=== PATIENT | female | born 1940 | race Two or more races ===

== ENCOUNTER 2020-04-11 10:42 | Inpatient (IN) | payer OTHER ==
[~2020-04-11] VITALS: Ht 144.8 cm; Wt 56.7 kg
[2020-04-11] MEDS ORDERED: LORazepam 2MG/ML-1ML VIAL IV ONE (11:00)
[2020-04-11] MEDS ORDERED: SODIUM CHLORIDE 0.9% 500 ML IVB ONE (11:00)
[2020-04-11 11:22] LABS: Hematocrit 41.4 % (36.0-46.0); Hemoglobin 14.4 g/dL (12.2-16.2); Mean Corpuscular Hemoglobin 33.5 pg (28.0-32.0); Mean Corpuscular Hgb Conc. 34.8 g/dL (32.0-36.0); Mean Corpuscular Volume 96.3 fL (80.0-100.0); Platelet Count (auto) 268 10^3/uL (140-450); Red Cell Distribution Width 15.9 % (11.8-14.3); White Blood Cell 7.3 10^3/uL (4.4-10.8)
[2020-04-11 11:31] LABS: Basophils % (manual) 0 (0.0-2.0); Blast Cells 0; Eosinophils % (manual) 0 (0-7); Metamyelocytes % 0; Myelocytes % 0; Promyelocytes % 0; Reactive Lymphocytes 0
[2020-04-11 11:50] LABS: Albumin 3.8 g/dL (3.4-5.0); Calcium 9.7 mg/dL (8.5-10.1); Potassium 3.4 mmol/L (3.5-5.1)
[2020-04-11 11:58] LABS: Bilirubin, Total 0.7 mg/dL (0.2-1.0); Total Protein 8.1 g/dL (6.4-8.2)
[2020-04-11 13:19] LABS: Band Neutrophils % (manual) 2; Lymphocytes % (manual) 34 (10.0-50.0); Monocytes % (manual) 3 (0-12)
[2020-04-11] MEDS ORDERED: NITROGLYCERIN 0.4 MG SL TAB SL PRN (15:30)
[2020-04-11] MEDS ORDERED: ONDANSETRON HCL 4 MG/2 ML VIAL IV PRN (15:30)
[2020-04-11] MEDS ORDERED: HALOPERIDOL LACTATE 5 MG/ML INJ VIAL IM ONE (16:00)
[2020-04-11] MEDS ORDERED: diphenhdrAMINE HCL 50 MG/1 ML VL IM ONE (16:00)
[2020-04-11] MEDS ORDERED: diphenhdrAMINE HCL 50 MG/1 ML VL ONE (16:05)
[2020-04-11] MEDS ORDERED: PRAV20TA3 PO (17:13)
[2020-04-11] MEDS ORDERED: AMLO-489 PO (17:13)
[2020-04-11] MEDS ORDERED: LEVO75TA6 PO (17:13)
[2020-04-11] MEDS ORDERED: TRIATAB3 PO (17:13)
[2020-04-11] MEDS: D5W/SOD CHL 0.45% 1,000 ML IV SCH (17:19)
[2020-04-11] MEDS ORDERED: HALOPERIDOL LACTATE 5 MG/ML INJ VIAL IM PRN (17:45)
[2020-04-11] MEDS ORDERED: LORazepam 2MG/ML-1ML VIAL IV PRN (21:30)
[2020-04-11] MEDS ORDERED: levETIRAcetam 500 MG/5ML INJ IV ONE (23:18)
[2020-04-12] MEDS: D5W/SOD CHL 0.45% 1,000 ML IV SCH (08:30)
[2020-04-12] MEDS: cefTRIAXone 1GM/50ML D5W 50 ML IV SCH (09:00)
[2020-04-12] MEDS: FAMOTIDINE (10MG/ML) 2ML VL IV SCH (10:00)
[2020-04-12] MEDS ORDERED: REMDESIVIR PER PHARMACY 0 ML IV SCH (11:45)
[2020-04-12] MEDS ORDERED: HALOPERIDOL LACTATE 5 MG/ML INJ VIAL IM PRN (11:45)
[2020-04-12] MEDS: ENOXAPARIN SOD 40 MG/0.4 ML SYRINGE SC SCH (14:04)
[2020-04-13] VITALS: BP 133/85
[2020-04-13 00:16] LABS: Urine Bacteria MOD /hpf (None Seen); Urine Blood 1+ /uL (Negative); Urine Mucus MODERATE (None Seen); Urine Specific Gravity 1.023 (1.001-1.035); Urine WBC 13 /hpf (0 - 5)
[2020-04-13 00:33] LABS: Amphetamine Screen, Urine NEGATIVE (NEGATIVE); Barbiturate Scree,Urine NEGATIVE (NEGATIVE); Benzodiazephine Screen, Urine NEGATIVE (NEGATIVE); Cannabinoid Screen, Urine NEGATIVE (NEGATIVE); Cocaine Screen, Urine NEGATIVE (NEGATIVE); Opiate Scree,Urine NEGATIVE (NEGATIVE); Phencyclidine Screen, Urine NEGATIVE (NEGATIVE)
[2020-04-13] MEDS: D5W/SOD CHL 0.45% 1,000 ML IV SCH (04:30)
[2020-04-13 07:31] LABS: Basophils # (auto) 0.1 10 ^3/uL (0-0.2); Eosinophils # (auto) 0.9 10 ^3/uL (0-0.8); Eosinophils % (auto) 10.9 % (0.0-7.0); Hematocrit 40.5 % (36.0-46.0); Lymphocytes # (auto) 1.8 10 ^3/uL (0.4-5.4); Lymphocytes % (auto) 22.8 % (10.0-50.0); Mean Corpuscular Hemoglobin 33.2 pg (28.0-32.0); Mean Corpuscular Hgb Conc. 34.7 g/dL (32.0-36.0); Mean Corpuscular Volume 95.9 fL (80.0-100.0); Monocytes # (auto) 0.7 10 ^3/uL (0-1.3); Monocytes % (auto) 8.4 % (0.0-12.0); Neutrophils # (auto) 4.6 10 ^3/uL (1.6-8.6); Neutrophils % (auto) 56.9 % (37.0-80.0); Platelet Count (auto) 242 10^3/uL (140-450); Red Blood Cells 4.23 10^6/uL (4.0-5.20); Red Cell Distribution Width 15.5 % (11.8-14.3)
[2020-04-13 07:45] LABS: BUN/Creatinine Ratio 21.2; CRP High Sensitivity 0.11 mg/dL (< 0.3); Calcium 8.4 mg/dL (8.5-10.1); Potassium 3.1 mmol/L (3.5-5.1)
[2020-04-13 08:00] VITALS: BP 151/90
[2020-04-13] MEDS: cefTRIAXone 1GM/50ML D5W 50 ML IV SCH (08:44)
[2020-04-13] MEDS: ENOXAPARIN SOD 40 MG/0.4 ML SYRINGE SC SCH (08:45)
[2020-04-13] MEDS: FAMOTIDINE (10MG/ML) 2ML VL IV SCH (08:45)
[2020-04-13] MEDS ORDERED: amLODIPine BESYLATE 5 MG TAB PO ONE (14:15)
[2020-04-13] MEDS ORDERED: POTASSIUM CHL 20 Meq TABLET PO ONE (14:15)
[2020-04-13] MEDS ORDERED: TRIAMTERENE/HCTZ 37.5/25 MG CAP/TAB PO ONE (14:15)
== END 2020-04-13 15:22 | disposition home or self-care (01) | DRG 177 ==
LOC: EDBD 10:42 → ER 10:42 → TELE 10:43 → TELE-WESTW 04-12 22:13
PROVIDERS: ADMIT Hospitalist; ATTEND Hospitalist
DX: U07.1 COVID-19 (principal); G93.41 Metabolic encephalopathy; N39.0 Urinary tract infection, site not specified; G93.89 Other specified disorders of brain; G40.909 Epilepsy, unspecified, not intractable, without status epilepticus; I10 Essential (primary) hypertension; F17.200 Nicotine dependence, unspecified, uncomplicated; W06.XXXA Fall from bed, initial encounter; Z78.9 Other specified health status; Z79.899 Other long term (current) drug therapy; Z82.49 Family history of ischemic heart disease and other diseases of the circulatory system; Z90.711 Acquired absence of uterus with remaining cervical stump; Z88.6 Allergy status to analgesic agent; Z88.8 Allergy status to other drugs, medicaments and biological substances; Z88.5 Allergy status to narcotic agent; Y93.89 Activity, other specified; Y92.89 Other specified places as the place of occurrence of the external cause; Y99.8 Other external cause status; Z90.49 Acquired absence of other specified parts of digestive tract; Z90.710 Acquired absence of both cervix and uterus
CPT/HCPCS: 36415; 70450; 71045; 80048; 80053; 80307; 80320; 81001; 82728; 85007; 85025; 85027; 85379; 86141; 87040; 87086; 87088; 87186; 87426; 93005; G0378; J0696; J2405; J3490; J7060